=== PATIENT | male | born 1970 | race Caucasian/White ===

== ENCOUNTER 2024-01-24 14:52 | Outpatient (CLI) | payer OTHER ==
[2024-01-24 16:18] VITALS: BP 143/94; PULSE 76; RESP 18; TEMP 97.8; O2SAT 98
[2024-01-24 20:00] VITALS: BP 144/94; PULSE 71; RESP 18; TEMP 97.9; O2SAT 99
[2024-01-24] MEDS: QUEtiapine FUMARATE 25 MG TABLET PO SCH (20:09)
[2024-01-25 08:33] VITALS: BP 136/74; PULSE 98; RESP 18; TEMP 98.6; O2SAT 98
[2024-01-25] MEDS ORDERED: QUET100T PO (10:42)
== END 2024-01-25 09:35 | disposition home or self-care (01) ==
LOC: CSU 14:52
PROVIDERS: ATTEND Nurse Practitioner Psychiatric/Mental Health
DX: F31.81 Bipolar II disorder (principal); F15.959 Other stimulant use, unspecified with stimulant-induced psychotic disorder, unspecified; F10.91 Alcohol use, unspecified, in remission
CPT/HCPCS: 90839; 90840; Z7610